=== PATIENT | female | born 1985 | race Two or more races ===

== ENCOUNTER 2020-01-12 20:10 | Emergency (ER) | payer SELFPAY ==
[2020-01-12 20:24] VITALS: BP 149/98; PULSE 107
[2020-01-12] MEDS ORDERED: FLU VACC QS2020-21(6MOS UP)/PF 60 MCG/0.5 ML SYRINGE IM ONE (20:30)
--- NOTE | 2020-01-12 21:03 | EDM.PDOCBH ---
ED HPI GENERAL MEDICAL PROBLEM - General Chief Complaint: Behavioral/Psych Stated Complaint: MH EVAL Time Seen by Provider: 01/12/20 20:20 Source of Information: Reports: Patient, RN Notes Reviewed, Other (involuntary commitment petition) History Limitations: Reports: No Limitations - History of Present Illness INITIAL COMMENTS - FREE TEXT/NARRATIVE: Patient is a 34-year-old female brought in by [facility] for mental health evaluation. Patient was served in involuntary commitment which cites repeated threats to kill herself or harm others. These threats are exacerbated by her drinking of alcohol. In discussion with the patient. She denies being suicidal at this time. States she only has these thoughts when she drinks. She has had increased drinking since May of this year. States she drinks about a pint of vodka every other day. The most that she will go without drinking is 3 days. She has a history of previous suicide attempts on multiple occasions. Had hospitalizations in the past for suicidal intent. Patient admits to being a cutter and states that she has been cutting herself and burning herself with cigarettes since she was in high school. He admits to occasional marijuana use. She smokes cigarettes only when she drinks. She is in agreement that she needs help for her alcohol consumption, but does not think that she needs inpatient treatment. She feels that she would well with AA and outpatient alcohol treatment. - Related Data Allergies Allergy/AdvReac Type Severity Reaction Status Date / Time sulfamethoxazole Allergy Severe Rash Verified 01/12/20 20:24 [From Bactrim] trimethoprim [From Bactrim] Allergy Severe Rash Verified 01/12/20 20:24 Home Meds: Home Meds . [No Known Home Meds] 01/12/20 [History] Past Medical History [employer] History: Reports: Other [employer] History: hx SAB Psychiatric History: Reports: Addiction, Anxiety, Depression, Psych Hospitalization(s), Suicide Attempt, Suicidal Ideation Other Psychiatric History: hx PP depression; medicated for 2 months Endocrine/Metabolic History: Reports: Obesity/BMI 30+ - Past Surgical History HEENT Surgical History: Reports: Oral Surgery GI Surgical History: Reports: Cholecystectomy Social & Family History - Tobacco Use Tobacco Use Status *Q: Current Some Day Tobacco User Years of Tobacco use: 16 Packs/Tins Daily: 0.1 - Caffeine Use Caffeine Use: Reports: Soda, Tea Caffeine Use Comment: 1x per week - Recreational Drug Use Recreational Drug Type: Reports: Marijuana/Hashish ED ROS GENERAL - Review of Systems Review Of Systems: See Below Constitutional: Reports: No Symptoms. Denies: Fever, Chills, Weakness HEENT: Reports: No Symptoms Respiratory: Reports: No Symptoms. Denies: Shortness of Breath, Cough Cardiovascular: Reports: No Symptoms Endocrine: Reports: No Symptoms GI/Abdominal: Reports: No Symptoms. Denies: Abdominal Pain, Diarrhea, Nausea, Vomiting : Reports: No Symptoms Musculoskeletal: Reports: No Symptoms Skin: Reports: No Symptoms Neurological: Reports: No Symptoms Psychiatric: Reports: No Symptoms Hematologic/Lymphatic: Reports: No Symptoms Immunologic: Reports: No Symptoms ED EXAM, BEHAVIORAL HEALTH - Physical Exam Exam: See Below General Appearance: Alert, WD/WN, No Apparent Distress Respiratory/Chest: No Respiratory Distress, Lungs Clear, Normal Breath Sounds, No Accessory Muscle Use, Chest Non-Tender Cardiovascular: Normal Peripheral Pulses, Regular Rate, Rhythm, No Edema, No Gallop, No JVD, No Murmur, No Rub GI/Abdominal: Normal Bowel Sounds, Soft, Non-Tender, No Organomegaly, No Distention, No Abnormal Bruit, No Mass Neurological: Alert, Normal Mood/Affect, CN II-XII Intact, Normal Cognition, Normal Gait, Normal Reflexes, No Motor/Sensory Deficits, Oriented x 3 Psychiatric: Alert, Normal Affect, Normal Cognition, Normal Mood, Oriented #1 Interpretation EKG Date: 01/12/20 Time: 20:32 Rhythm: NSR Rate (Beats/Min): 89 [place]: Normal P-Wave: Present QRS: Normal ST-T: Normal QT: Normal COURSE, BEHAVIORAL HEALTH COMP - Course Vital Signs: Last Vital Signs Temp 96.5 F L 01/12/20 20:20 Pulse 107 H 01/12/20 20:20 Resp 16 01/12/20 20:20 BP 149/98 H 01/12/20 20:20 Pulse Ox 98 01/12/20 20:20 Orders, Labs, Meds: Active Orders 24 hr Category Date Time Status EKG Documentation Completion [RC] STAT Care 01/12/20 20:21 Active Influenza Vaccine Charge [RC] .DISCHARGE Care 01/12/20 20:27 Active Laboratory Tests 01/12/20 01/12/20 01/12/20 Range/Units 20:30 20:30 20:30 WBC 9.31 (3.98-10.04) K/mm3 RBC 4.52 (3.98-5.22) M/mm3 Hgb 14.7 D (11.2-15.7) gm/dl Hct 44.5 (34.1-44.9) % MCV 98.5 H (79.4-94.8) fl MCH 32.5 H (25.6-32.2) pg MCHC 33.0 (32.2-35.5) g/dl RDW Std Deviation 44.0 (36.4-46.3) fL Plt Count 254 (182-369) K/mm3 MPV 11.3 (9.4-12.3) fl Neutrophils % (Manual) 73 H (40-60) % Band Neutrophils % 0 (0-10) % Lymphocytes % (Manual) 22 (20-40) % Atypical Lymphs % 0 % Monocytes % (Manual) 4 (2-10) % Eosinophils % (Manual) 1 (0.7-5.8) % Basophils % (Manual) 0 L (0.1-1.2) Platelet Estimate Adequate RBC Morph Comment Normal Sodium 138 (136-145) mEq/L Potassium 3.5 (3.5-5.1) mEq/L Chloride 102 (98-107) mEq/L Carbon Dioxide 22 (21-32) mEq/L Anion Gap 17.5 H (5-15) BUN 14 (7-18) mg/dL Creatinine 1.0 (0.55-1.02) mg/dL Est Cr Clr Drug Dosing 65.57 mL/min Estimated GFR (MDRD) > 60 (>60) mL/min BUN/Creatinine Ratio 14.0 (14-18) Glucose 112 H (74-106) mg/dL Calcium 9.1 (8.5-10.1) mg/dL Total Bilirubin 0.9 (0.2-1.0) mg/dL AST 17 (15-37) U/L ALT 41 (14-59) U/L Alkaline Phosphatase 82 (46-116) U/L Total Protein 7.6 (6.4-8.2) g/dl Albumin 3.8 (3.4-5.0) g/dl Globulin 3.8 gm/dL Albumin/Globulin Ratio 1.0 (1-2) TSH 3rd Generation 1.038 (0.358-3.74) uIU/mL Urine HCG, Qual (NEGATIVE) Salicylates < 0.2 L (2.8-20) mg/dL Urine Opiates Screen (IEWMOM=080) Ur Buprenorphine Scrn (CUTOFF=10) Ur Oxycodone Screen (KUW7VI=367) Urine Methadone Screen (ZPLHXQ=558) Ur Propoxyphene Screen (HNKYUF=893) Acetaminophen 0 L (10-30) ug/mL Ur Barbiturates Screen (CAJEMU=419) Ur Tricyclics Screen (YXTEZO=538) Ur Phencyclidine Scrn (CUTOFF=25) Ur Amphetamine Screen (ZDXYUS=034) U Methamphetamines Scrn (YSOYEL=852) U Benzodiazepines Scrn (HTRROH=697) U Cocaine Metab Screen (QHDNCS=264) U Marijuana (THC) Screen (CUTOFF=50) Ethyl Alcohol 0.00 (0.00) gm% SARS-CoV-2 RNA (YUMIKO) (NEGATIVE) 01/12/20 01/12/20 01/12/20 Range/Units 20:44 20:48 20:48 WBC (3.98-10.04) K/mm3 RBC (3.98-5.22) M/mm3 Hgb (11.2-15.7) gm/dl Hct (34.1-44.9) % MCV (79.4-94.8) fl MCH (25.6-32.2) pg MCHC (32.2-35.5) g/dl RDW Std Deviation (36.4-46.3) fL Plt Count (182-369) K/mm3 MPV (9.4-12.3) fl Neutrophils % (Manual) (40-60) % Band Neutrophils % (0-10) % Lymphocytes % (Manual) (20-40) % Atypical Lymphs % % Monocytes % (Manual) (2-10) % Eosinophils % (Manual) (0.7-5.8) % Basophils % (Manual) (0.1-1.2) Platelet Estimate RBC Morph Comment Sodium (136-145) mEq/L Potassium (3.5-5.1) mEq/L Chloride (98-107) mEq/L Carbon Dioxide (21-32) mEq/L Anion Gap (5-15) BUN (7-18) mg/dL Creatinine (0.55-1.02) mg/dL Est Cr Clr Drug Dosing mL/min Estimated GFR (MDRD) (>60) mL/min BUN/Creatinine Ratio (14-18) Glucose (74-106) mg/dL Calcium (8.5-10.1) mg/dL Total Bilirubin (0.2-1.0) mg/dL AST (15-37) U/L ALT (14-59) U/L Alkaline Phosphatase (46-116) U/L Total Protein (6.4-8.2) g/dl Albumin (3.4-5.0) g/dl Globulin gm/dL Albumin/Globulin Ratio (1-2) TSH 3rd Generation (0.358-3.74) uIU/mL Urine HCG, Qual Negative (NEGATIVE) Salicylates (2.8-20) mg/dL Urine Opiates Screen Negative (FAGTBL=033) Ur Buprenorphine Scrn Negative (CUTOFF=10) Ur Oxycodone Screen Negative (HDL1XF=535) Urine Methadone Screen Negative (UPXIMV=825) Ur Propoxyphene Screen Negative (RUVOFE=887) Acetaminophen (10-30) ug/mL Ur Barbiturates Screen Negative (YMFFNB=831) Ur Tricyclics Screen Negative (CVLQPV=245) Ur Phencyclidine Scrn Negative (CUTOFF=25) Ur Amphetamine Screen Negative (LLMXCK=086) U Methamphetamines Scrn Negative (RKQVIU=270) U Benzodiazepines Scrn Negative (JSPTCK=708) U Cocaine Metab Screen Negative (TYAGUE=836) U Marijuana (THC) Screen Presumptive positive H (CUTOFF=50) Ethyl Alcohol (0.00) gm% SARS-CoV-2 RNA (YUMIKO) Negative (NEGATIVE) Medications Discontinued Medications Generic Name Dose Route Start Last Admin Trade Name Freq PRN Reason Stop Dose Admin Influenza Virus Vaccine 1 each 01/12/20 20:27 Pharmacy To Dose - Influenza Vaccine IM 01/12/20 20:28 ONETIME ONE Influenza Virus Vaccine 60 mcg 01/12/20 20:30 01/12/20 20:55 Fluzone Quad [id number] Syringe IM 01/12/20 20:31 60 mcg .ONCE ONE Administration Medical Clearance: 01/12/20 21:00 Patient is a 34-year-old female brought in by [facility] on an involuntary commitment. Petition was filed by the patient's parents, Albaro and Quyen Driver. It was signed by states travel occupational therapist, Stevie Espinosa. Instructions on the emergency treatment order state that the defendant shall be taken into immediate custody by the [facility] and detained at an appropriate facility until the date of the preliminary her treatment hearing. The alf show only occur following any legally required screening. The respondent shall be taken to [facility] initially with screening by [facility] to follow. I have ordered a complete psychiatric including CBC, CMP TSH, qualitative hCG, drug screen, ethanol, acetaminophen, salicylates, coronavirus test, and EKG. I have been in contact with [facility]. Simin, the school bus mechanic on-call, will come up to the ER to screen the patient. 01/12/20 21:59 Patient's work-up was remarkable for anion gap minimally elevated at 17.5. She was presumptive positive for marijuana. Remaining drug screen was negative. Salicylates and Tylenol were both negative. Blood alcohol was 0. Urine hCG was negative. Covid screen was negative. She has been deemed medically stable and cleared for treatment. Simin for [facility] was here and screened the patient. States she does not qualify for the [facility], however they do have room at the crisis bed, therefore she will go there this evening. Simin will return to pick her up and take her to the facility. We will discharge her to the [facility]. Departure - Departure Time of Disposition: 22:00 Disposition: DC/Tfer to Psych Hosp/Unit 65 Condition: Good Clinical Impression: Alcohol abuse, History of suicidal tendencies - Discharge Information Instructions: Alcohol Use Disorder Referrals: PCP,None [Primary Care Provider] - Forms: ED Department Discharge Additional Instructions: Was seen in the emergency department today for medical evaluation after having an involuntary commitment served. Your work-up included blood work, urinalysis, a drug screen, EKG, and Covid test. Your work-up was found to be overall normal with the exception of positive for marijuana which you did admit to using. Blood alcohol was 0. You were Covid negative. [facility] did evaluate you and have arranged for you go to the residential crisis center. Recommend that you follow the plan of care as put in place by [facility]. Return to the ER as needed. Sepsis Event Note (ED) - Evaluation Sepsis Screening Result: No Definite Risk - Focused Exam Vital Signs: Vital Signs Temp Pulse Resp BP Pulse Ox 01/12/20 20:20 96.5 F L 107 H 16 149/98 H 98 - My Orders Last 24 Hours: My Active Orders 01/12/20 20:21 EKG Documentation Completion [RC] STAT 01/12/20 20:27 Influenza Vaccine Charge [RC] .DISCHARGE - Assessment/Plan Last 24 Hours: My Active Orders 01/12/20 20:21 EKG Documentation Completion [RC] STAT 01/12/20 20:27 Influenza Vaccine Charge [RC] .DISCHARGE
[2020-01-12 21:11] LABS: ACETAMINOPHEN 0 ug/mL (10-30)
== END 2020-01-12 22:27 ==
LOC: JD.ED 20:10
DX: F10.10 Alcohol abuse, uncomplicated (principal); E66.9 Obesity, unspecified; F17.210 Nicotine dependence, cigarettes, uncomplicated; Z23 Encounter for immunization; Z88.2 Allergy status to sulfonamides; Z90.49 Acquired absence of other specified parts of digestive tract; Z20.828 Contact with and (suspected) exposure to other viral communicable diseases; Z68.31 Body mass index [BMI] 31.0-31.9, adult
CPT/HCPCS: 36415; 80053; 80306; 80307; 81025; 84443; 85007; 85027; 90686; 93005; 93010; 99283; 99285-25; G0008; U0002

== ENCOUNTER 2024-11-30 18:08 | Emergency (ER) | payer MEDICAID | END 2024-11-30 18:20 | LOC: JD.ED 18:08 | DX: Z53.21 Procedure and treatment not carried out due to patient leaving prior to being seen by health care provider (principal) ==